=== PATIENT | female | born 1965 | race Caucasian/White ===

== ENCOUNTER 2017-07-27 18:06 | Emergency (ER) | payer SELFPAY ==
[~2017-07-27] VITALS: Ht 165.1 cm; Wt 130.2 kg
--- NOTE | ~2017-07-27 | EKG ---
[place], [place] ELECTROCARDIOGRAM REPORT NAME: KARLOS DOYLE UNIT #: [id number] ROOM: DOCTOR: FABIENNE YUAN,MARLON BIRTHDATE: [birth year] DOS: 07/27/2017 TIME: 1836 hours; IMPRESSION: 1. Sinus rhythm, sinus tachycardia. 2. Old anterior infarction. 3. Old inferior infarction. MRALON LOVING MD CM:EKGRPT:ELECTROCARDIOGRAM REPORT [id number] MARLON LOVING MD
[~2017-07-27 18:06] MED LIST: ASPIR LOW81 MG PO; FLONASE0.05 MG/AC NS; LIPITOR40 MG PO; LISINOPRIL10 M1 PO; LOPRESSOR50 MG PO; Lopressor25 MG PO; MULTI VITAMINS1 TAB PO; NAPROSYN500 MG PO; NORCO 325 MG-51 TAB PO
[2017-07-27 18:42] LABS: BASO % 0.2 % (0.0-1.0); EOS # 0.1 10*3/uL (0.0-0.4); EOS % 0.7 % (1.0-4.0); HEMATOCRIT 40.1 % (37.0-47.0); HEMOGLOBIN 13.1 g/dl (12.0-16.0); LYMPH # 0.9 10*3/uL (1.3-4.4); MEAN CELL VOLUME 91.3 fl (81.0-99.0); MEAN CORPUSCULAR HGB 29.8 pg (27.0-31.0); MEAN CORPUSCULAR HGB CONC 32.7 g/dl (33.0-37.0); MEAN PLATELET VOLUME 9.6 fl (9.6-12.3); MONO # 0.4 10*3/uL (0.1-1.0); MONO % 3.1 % (3.0-9.0); NEUT # 10.7 10*3/uL (2.3-7.9); NEUT % 88.3 % (47.0-73.0); PLATELET COUNT AUTOMATED 285 10*3/uL (130-400); RED BLOOD COUNT 4.39 10*6/uL (4.10-5.10); WHITE BLOOD COUNT 12.1 10*3/uL (4.8-10.8)
[2017-07-27 19:02] LABS: ALBUMIN 3.9 gm/dl (3.1-4.5); ALKALINE PHOSPHATASE 104 U/L (45-117); BUN 22 mg/dl (7-24); CHLORIDE 106 mmol/L (98-107); CREATININE 0.94 mg/dL (0.55-1.02); POTASSIUM 3.9 mmol/L (3.5-5.1); SGOT/AST 24 IU/L (3-35); SGPT/ALT 34 U/L (12-78); SODIUM 141 mmol/L (136-145); TOTAL PROTEIN 8.1 gm/dL (6.4-8.2); TROPONIN I < 0.015 ng/ml (<0.045)
[2017-07-27 19:56] LABS: BILIRUBIN NEGATIVE (NEGATIVE); BLOOD 1+ (NEGATIVE); CLARITY SL CLOUDY (CLEAR); COLOR YELLOW (YELLOW); GLUCOSE NEGATIVE (NEGATIVE); KETONE TRACE (NEGATIVE); LEUKO ESTERASE TRACE (NEGATIVE); NITRITE NEGATIVE (NEGATIVE); SPECIFIC GRAVITY 1.025 (1.005-1.030); UROBILINOGEN 0.2 E.U./dl (0.2-1.0)
[2017-07-27 20:03] LABS: EPITHELIAL CELLS 31-40
[2017-07-27 20:04] LABS: BACTERIA 2+
[2017-07-27] MEDS ORDERED: Bactrim DS PO (20:07)
[2017-07-27] MEDS ORDERED: ZOFRAN4 MG PO (20:07)
== END 2017-07-27 20:18 | disposition home or self-care (01) ==
LOC: ED 18:06
PROVIDERS: Nurse Practitioner Family
DX: N39.0 Urinary tract infection, site not specified (principal); Z90.710 Acquired absence of both cervix and uterus; Z90.49 Acquired absence of other specified parts of digestive tract; Z79.82 Long term (current) use of aspirin; Z79.899 Other long term (current) drug therapy

== ENCOUNTER → 2018-08-08 | Outpatient (CLI) | payer OTHER ==
[~2018-08-08] MED LIST changes: +Bactrim DS PO; +ZOFRAN4 MG PO
== END | disposition home or self-care (01) ==
LOC: MAMMO 08:00
DX: Z12.31 Encounter for screening mammogram for malignant neoplasm of breast (principal)

== ENCOUNTER 2018-09-24 22:00 | Emergency (ER) | payer OTHER ==
[~2018-09-24] VITALS: Ht 165.1 cm; Wt 124.3 kg
[2018-09-24] MEDS ORDERED: VISTARIL25 M2 PO (22:40)
== END 2018-09-24 22:52 | disposition home or self-care (01) ==
LOC: ED 22:00
DX: F41.9 Anxiety disorder, unspecified (principal); F32.9 Major depressive disorder, single episode, unspecified; Z79.899 Other long term (current) drug therapy; Z79.82 Long term (current) use of aspirin

== ENCOUNTER → 2020-06-22 | Outpatient (CLI) | payer OTHER ==
[~2020-06-22] MED LIST changes: +PHENERGAN25 M3 PO; +VISTARIL25 M2 PO; +ZITHROMAX250 MG PO
== END | disposition home or self-care (01) ==
LOC: COVID19 09:45
PROVIDERS: ATTEND Physical Therapist
DX: R05 Cough (principal); Z20.828 Contact with and (suspected) exposure to other viral communicable diseases

== ENCOUNTER 2020-07-05 07:27 | Emergency (ER) | payer OTHER ==
[~2020-07-05] VITALS: Ht 165.1 cm; Wt 121.1 kg
[~2020-07-05 07:27] MED LIST changes: -PHENERGAN25 M3 PO; -ZITHROMAX250 MG PO
[2020-07-05 08:49] LABS: HEMATOCRIT 38.8 % (37.0-47.0); MEAN CORPUSCULAR HGB 30.2 pg (27.0-31.0); MEAN CORPUSCULAR HGB CONC 32.5 g/dl (33.0-37.0); MEAN PLATELET VOLUME 9.3 fl (9.6-12.3); PLATELET COUNT AUTOMATED 355 10*3/uL (130-400); RED BLOOD COUNT 4.17 10*6/uL (4.10-5.10); WHITE BLOOD COUNT 6.8 10*3/uL (4.8-10.8)
[2020-07-05 09:01] LABS: ACT PARTIAL THROMBO TIME 25.5 SECONDS (20.0-32.1)
[2020-07-05 09:04] LABS: ALBUMIN 3.6 gm/dl (3.1-4.5); ALKALINE PHOSPHATASE 94 U/L (45-117); BUN 21 mg/dl (7-24); CHLORIDE 104 mmol/L (98-107); LIPASE 156 U/L (73-393); POTASSIUM 3.3 mmol/L (3.5-5.1); SGOT/AST 28 IU/L (3-35); SGPT/ALT 35 U/L (12-78); SODIUM 141 mmol/L (136-145); TOTAL PROTEIN 8.5 gm/dL (6.4-8.2)
[2020-07-05 09:06] LABS: TROPONIN I < 0.015 ng/ml (<0.045)
[2020-07-05 09:19] LABS: ATYPICAL LYMPHS 4 % (0-0); PLASMA CELL 1 % (0-0); TOTAL CELLS COUNTED 100 #CELLS
[2020-07-05 09:20] LABS: PLATELET SUFFICIENCY NORMAL (NORMAL)
[2020-07-05] MEDS ORDERED: PHENERGAN25 M3 PO (10:13)
[2020-07-05] MEDS ORDERED: ZITHROMAX250 MG PO (10:13)
== END 2020-07-05 10:31 | disposition home or self-care (01) ==
LOC: ED 07:27
PROVIDERS: Emergency Medicine
DX: J18.9 Pneumonia, unspecified organism (principal); Z20.828 Contact with and (suspected) exposure to other viral communicable diseases; R79.1 Abnormal coagulation profile; Z79.899 Other long term (current) drug therapy; Z79.82 Long term (current) use of aspirin

== ENCOUNTER → 2020-07-20 | Outpatient (CLI) | payer OTHER ==
[~2020-07-20] MED LIST changes: +PHENERGAN25 M3 PO; +ZITHROMAX250 MG PO
== END | disposition home or self-care (01) ==
LOC: COVID19 09:36
PROVIDERS: ATTEND Physical Therapist
DX: R05 Cough (principal); Z20.828 Contact with and (suspected) exposure to other viral communicable diseases

== ENCOUNTER → 2020-09-15 | Outpatient (CLI) | payer OTHER | END | disposition home or self-care (01) | LOC: MAMMO 07:30 | PROVIDERS: ATTEND Family Medicine | DX: Z12.31 Encounter for screening mammogram for malignant neoplasm of breast (principal); N64.89 Other specified disorders of breast ==

== ENCOUNTER → 2021-09-07 | Outpatient (CLI) | payer OTHER | END | disposition home or self-care (01) | LOC: COVID19 17:08 | PROVIDERS: ATTEND Internal Medicine | DX: Z11.52 Encounter for screening for COVID-19 (principal) ==

== ENCOUNTER → 2021-10-20 | Outpatient (CLI) | payer OTHER | END | disposition home or self-care (01) | LOC: MAMMO 09:18 | PROVIDERS: ATTEND Family Medicine | DX: Z12.31 Encounter for screening mammogram for malignant neoplasm of breast (principal); I12.9 Hypertensive chronic kidney disease with stage 1 through stage 4 chronic kidney disease, or unspecified chronic kidney disease; N18.31 Chronic kidney disease, stage 3a ==

== ENCOUNTER 2022-08-17 01:16 | Emergency (ER) | payer BC ==
[~2022-08-17] VITALS: Ht 165.1 cm; Wt 104.0 kg
[2022-08-17] MEDS ORDERED: NAPROXEN250 MG PO (02:28)
== END 2022-08-17 02:34 | disposition home or self-care (01) ==
LOC: ED 01:16
DX: R07.81 Pleurodynia (principal); R20.2 Paresthesia of skin; Z79.82 Long term (current) use of aspirin; Z79.899 Other long term (current) drug therapy; Z90.710 Acquired absence of both cervix and uterus; Z90.49 Acquired absence of other specified parts of digestive tract

== ENCOUNTER → 2022-11-03 | Outpatient (CLI) | payer BC ==
[~2022-11-03] MED LIST changes: +NAPROXEN250 MG PO
== END | disposition home or self-care (01) ==
LOC: LAB 16:11
PROVIDERS: ATTEND Family Medicine
DX: D64.9 Anemia, unspecified (principal)

== ENCOUNTER → 2023-07-16 | Day surgery (SDC) | payer BC ==
[~2023-07-16] VITALS: Ht 165.1 cm; Wt 112.5 kg
[~2023-07-16] MED LIST changes: +HYDROCHLOROTH12.5 M2 PO; +METFORMIN HYDR500 MG PO
[2023-07-16 13:10] VITALS: BP 118/49
[2023-07-16 13:14] LABS: BUN 11 mg/dl (9-23); CHLORIDE 108 mmol/L (98-107); POTASSIUM 3.8 mmol/L (3.4-5.1)
[2023-07-16 14:15] VITALS: BP 105/52
[2023-07-16 14:30] VITALS: BP 117/66
[2023-07-16 14:44] VITALS: BP 116/60
== END | disposition home or self-care (01) ==
LOC: SDC 07-12 10:15
PROVIDERS: ATTEND Surgery
DX: D64.9 Anemia, unspecified (principal); K57.30 Diverticulosis of large intestine without perforation or abscess without bleeding; I10 Essential (primary) hypertension; E11.9 Type 2 diabetes mellitus without complications; E78.00 Pure hypercholesterolemia, unspecified; Z87.891 Personal history of nicotine dependence; Z90.49 Acquired absence of other specified parts of digestive tract; Z98.890 Other specified postprocedural states

== ENCOUNTER → 2023-09-07 | Outpatient (CLI) | payer BC | END | disposition home or self-care (01) | LOC: LAB 07:38 | PROVIDERS: ATTEND Family Medicine | DX: R19.7 Diarrhea, unspecified (principal) ==

== ENCOUNTER → 2025-05-07 | Outpatient (CLI) | payer OTHER | LOC: RAD 13:11 | PROVIDERS: ATTEND Family Medicine | DX: R76.11 Nonspecific reaction to tuberculin skin test without active tuberculosis (principal) ==

== ENCOUNTER → 2025-07-20 | Outpatient (CLI) | payer OTHER ==
[2025-07-20 11:35] LABS: BASO # 0.0 10*3/uL (0.0-0.1); BASO % 0.5 % (0.0-1.0); EOS # 0.2 10*3/uL (0.0-0.4); EOS % 2.1 % (1.0-4.0); MEAN CELL VOLUME 95.5 fl (81.0-99.0); MEAN CORPUSCULAR HGB 30.0 pg (27.0-31.0); MEAN PLATELET VOLUME 9.1 fl (9.6-12.3); MONO # 0.4 10*3/uL (0.1-1.0); MONO % 5.1 % (3.0-9.0); NEUT # 4.6 10*3/uL (2.3-7.9); NEUT % 57.8 % (47.0-73.0); NUCLEATED RED BLOOD CELL 0.0 % (0.0-0.0); NUCLEATED RED BLOOD CELL 0.0 10*3/uL (0.0-0.0); PLATELET COUNT AUTOMATED 256 10*3/uL (130-400); RED CELL DISTRI WIDTH 15.1 % (0-14.5)
[2025-07-20 12:31] LABS: BUN 22 mg/dl (9-23); LDL CHOLESTEROL 71 mg/dL (9-159); SGPT/ALT 19 U/L (5-49)
[2025-07-20 12:32] LABS: VITAMIN D, 25-HYDROXY 52.5 ng/mL (30-100)
== END | disposition home or self-care (01) ==
LOC: LAB 11:12
PROVIDERS: ATTEND Family Medicine
DX: I10 Essential (primary) hypertension (principal); E78.5 Hyperlipidemia, unspecified; E55.9 Vitamin D deficiency, unspecified; E11.9 Type 2 diabetes mellitus without complications